=== PATIENT | female | born 1980 | race Caucasian/White ===

== ENCOUNTER → 2017-10-21 09:07 | Outpatient (CLI) | payer OTHER, SELFPAY ==
--- NOTE | 2017-10-22 09:32 | ONE_ITS ---
DATE OF SERVICE: October 21, 2017 ASSESSMENT: Left shoulder tendonitis, improving. PLAN: Work restrictions were advanced per Work Status Form. She is strongly urged to continue with all str etches and exercises which were taught by PT. I will see her back in one week and hope to be able to lift her restrictions at that time. Greater than 50% of this visit was spent planning and coordinating care. EMPLOYER: Healthcare Services SUBJECTIVE: Ms. Carter comes in again for reassessment of left shoulder pain which she tells me has continued to improve slowly. She did notice some pulling laterally after mopping an entire hallway recently. It lasted about 10 minutes. Because of that she's been cautious in resuming mopping activities, and is actually modifying her tasks so they are broken up into shorter periods of time. She has not need ed any pain medications. REVIEW OF SYSTEMS: Complains of fatigue today due to poor sleep, mostly related to heat and stress. Has had some headac he, again, she feels related to heat and stress. Otherwise no swelling, numbness, tingling, or pares thesias of upper extremities. No chest pain, cough, wheeze, or dyspnea. No abdominal pain, nausea, vomiting, or GI complaints. PAST MEDICAL HISTORY: Significant for vein stripping. MEDICATIONS: Only occasional ibuprofen for headache at this point. SOCIAL: Single, living with children. HABITS: Doesn't smoke. No alcohol. No substance abuse. OBJECTIVE: She does look tired today but is again neatly groomed, pleasant and cooperative. No acute distress. Musculoskeletal exam: There is mild tenderness today over the distal cervical vertebrae, none in the paraspinous muscles or periscapular area. None at the AC. No localized tenderness over the rotator cuff which had been a finding previously. Range of motion: Still enjoys full cross-body adduction, 180 degrees of flexion and adduction without discomfort. Empty can negative. Upper extremity muscle strength equal bilaterally. DTRs upper extremities 1+ bilaterally.
== END ==
PROVIDERS: PCP Nurse Practitioner Family; Visit Provider Nurse Practitioner Family
DX: M25.512 Pain in left shoulder (principal); M75.82 Other shoulder lesions, left shoulder
CPT/HCPCS: 99213; 99214

== ENCOUNTER → 2017-10-29 10:26 | Outpatient (CLI) | payer OTHER, SELFPAY ==
--- NOTE | 2017-10-30 07:50 | ONE_ITS ---
OCCUPATIONAL MEDICINE DATE OF SERVICE October 29, 2017 ASSESSMENT Left shoulder tendonitis, essentially resolved. She understands that she will need to continue with r egular stretches and exercises in order to maintain posture and prevent re-injury. PLAN I am releasing today at [facility]. Greater than 50% of this visit was spent planning and coordinating care. EMPLOYER Healthcare Services SUBJECTIVE Ms. Carter returns for further followup on left shoulder pain, which she says has continued to slo wly improve. She did experience a minor flare-up this week after she increased her workload, but this lasted less than an hour. She describes it as lateral soreness only, and she has been comfortable si nce then. She has not needed any ibuprofen. She has not needed to perform any extra pain relief measu res. She is doing some stretching, but admits she could increase the level of exercises that she is p erforming at home. REVIEW OF SYSTEMS She feels generally well without headache, abdominal pain, nausea, vomiting, GI complaints. No swelli ng, numbness, tingling or paresthesias of upper extremities. PAST MEDICAL HISTORY Vein stripping. MEDICATIONS No routine medications, except for ibuprofen p.r.n. SOCIAL HISTORY She is single, living with children. HABITS She does not smoke. No alcohol. No substance abuse. OBJECTIVE She is alert, pleasant and cooperative. She is in no acute distress. Musculoskeletal exam - No tenderness to direct palpation of the cervical spine, none in the parascapu lar area of the left shoulder. Mild tenderness today at the AC. She has no tenderness over the rotato r cuff or the proximal biceps. Range of motion - Full cross-body adduction, External rotation to C7, internal rotation to L5. 180 d egrees of flexion and abduction without discomfort. Empty can is negative. Upper extremity muscle strength equal bilaterally. DTRs upper extremities 1+ bilaterally.
== END ==
PROVIDERS: PCP Nurse Practitioner Family; Visit Provider Nurse Practitioner Family
DX: M25.512 Pain in left shoulder (principal); M75.82 Other shoulder lesions, left shoulder
CPT/HCPCS: 99214

== ENCOUNTER 2018-10-13 10:23 | Emergency (ER) | payer SELFPAY ==
[2018-10-13 10:26] VITALS: BP 129/80; PULSE 81; RESP 14; TEMP 36.9; O2SAT 100
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
[2018-10-13] MEDS: Acetaminophen 500 MG TAB 1000 MG PO (11:01)
[2018-10-13] MEDS: diazePAM 5 MG TAB PO (11:01)
[2018-10-13] MEDS: Ibuprofen 600 MG TAB PO (11:02)
[2018-10-13] MEDS: Lidocaine 5% Patch 1 PATCH TP (11:02)
[2018-10-13] MEDS: oxyCODONE 5 MG TAB PO (12:06)
[2018-10-13 12:42] VITALS: BP 124/76; PULSE 81; RESP 16; TEMP 36.7; O2SAT 98
== END 2018-10-13 12:44 | disposition home or self-care (01) ==
PROVIDERS: Emergency Provider Physician Assistant; PCP Nurse Practitioner Family
DX: M62.838 Other muscle spasm (principal)
CPT/HCPCS: 99283

== ENCOUNTER 2020-02-07 22:07 | Outpatient (REF) | payer BC, SELFPAY ==
[2020-02-10 12:15] LABS: Patient Race White; SARS-CoV-2 Specimen Source Nasal
[2020-02-10 13:41] LABS: SARS-CoV-2 RNA Detected (Undetected)
== END 2020-02-07 22:27 ==
LOC: NCHCN 22:07
PROVIDERS: PCP Nurse Practitioner Family; Visit Provider Nurse Practitioner Family
DX: R05 Cough (principal); J02.9 Acute pharyngitis, unspecified; M79.18 Myalgia, other site
CPT/HCPCS: U0003